=== PATIENT | male | born 1960 | race Two or more races ===

== ENCOUNTER 2017-11-16 05:50 | Day surgery (SDC) | payer OTHER ==
[2017-11-16] VITALS (11 sets, daily range): BP systolic 104–141; BP diastolic 60–87
[~2017-11-16] VITALS: Ht 182.9 cm; Wt 108.9 kg
[~2017-11-16 05:50] MED LIST: MELOXICAM15 MG PO; MIRTAZAPINE15 M3 ORAL; NORCO 10-325 T1 EACH ORAL
[2017-11-16] MEDS ORDERED: oxyCONTIN 20mg tab ORAL ONE (06:00)
[2017-11-16] MEDS ORDERED: celeBREX 200mg Cap **SURGERY PATIENTS ONLY PO ONE (06:00)
--- NOTE | 2017-11-16 06:41 | Anethesia Preoperative Eval ---
Anesthesia Pre-op PMH/ROS General Date of Evaluation: Nov 16, 2017 Anesthesiologist: Rohit ASA Score: ASA 2 Mallampati Score Class I : Soft palate, uvula, fauces, pillars visible Class II: Soft palate, uvula, fauces visible Class III: Soft palate, base of uvula visible Class IV: Only hard plate visible Mallampati Classification: Class II Surgeon: Torsten Diagnosis: Right shoulder impingement Surgical Procedure: Right shoulder arthroscopy and subacromial decompression Anesthesia History: none Family History: no anesthesia problems Allergies: Coded Allergies: PENICILLINS (Verified Allergy, Severe, 11/15/17) SKIN RASH,NAUSEA AND DIZZINESS, BODY SHAKES Medications: see eMAR Past Medical History Cardiovascular: Denies: HTN, CAD, MA, valve dz, arrhythmia, other Pulmonary: Reports: asthma, Denies: COPD, TERRELL, other Gastrointestinal/Genitourinary: Denies: GERD, CRI, ESRD, other Neurologic/Psychiatric: Reports: other - migraines, Denies: dementia, CVA, depression/anxiety, TIA Endocrine: Denies: DM, hypothyroidism, steroids, other HEENT: Denies: cataract (L), cataract (R), glaucoma, [place] (L), [place] (R), other Hematology/Immune: Reports: anemia - chronic, Denies: DVT, bleeding disorder, other Musculoskeletal/Integumentary: Denies: OA, RA, DJD, DDD, edema, other Other: obesity PSxH Narrative: Right leg sx, right arm sx Anesthesia Pre-op Phys. Exam Physician Exam see chart Constitutional: NAD Cardiovascular: RRR Respiratory: CTA Airway Exam Mallampati Score: Class II MO: limited Neck: short, obese TMD: <3FB ROM: full Teeth: intact Anesthesia Pre-op A/P Labs see chart Studies Pre-op Studies: EKG - sr Risk Assessment & Plan Assessment: ASA II Plan: GA-ETT Status Change Before Surgery: No Pre-Antibiotics Drug: Clindamycin 900mg Given Within 1 Hr of Incision: Yes Time Given: 08:00 LOUIS GALLEGOS M.D. Nov 16, 2017 06:41
[2017-11-16] MEDS ORDERED: LR 1000ml 1,000 ML IVLG SCH (07:04)
[2017-11-16] MEDS ORDERED: Bupivacaine 0.25% Inj 30ml INJ ONE (07:10)
[2017-11-16] MEDS ORDERED: Ropivacaine 5mg/ml Vial 30ml INJ ONE (07:10)
[2017-11-16] MEDS ORDERED: EPINEPHrine 1mg/1ml Amp ONE (07:10)
[2017-11-16] MEDS ORDERED: DiphenhydrAMINE 50mg/ml Inj IVP PRN (07:15)
[2017-11-16] MEDS ORDERED: Hydromorphone 0.5mg/0.5ml inj IVP PRN (07:15)
[2017-11-16] MEDS ORDERED: fentaNYL 100 mcg/2 mL IV PRN (07:15)
[2017-11-16] MEDS ORDERED: celeBREX 200mg Cap **SURGERY PATIENTS ONLY ORAL ONE (07:16)
--- NOTE | 2017-11-16 07:39 | Pre-Procedure Note/Attestation ---
Pre-Procedure Note/Attestation Complete Prior to Procedure Planned Procedure: left Procedure Narrative: shoulder arthroscopy, sad, possible rc repair Indications for Procedure Pre-Operative Diagnosis: left shoulder internal inpingement Attestation I attest that I discussed the nature of the procedure; its benefits; risks and complications; and alternatives (and the risks and benefits of such alternatives ), prior to the procedure, with the patient (or the patient's legal retail field representative). I attest that, if there was a reasonable possibility of needing a blood transfusion, the patient (or the patient's legal retail field representative) was given the [facility] standardized written summary, pursuant to the [place] Blood Safety Act ([place] Health and Safety Code # 1645, as amended). I attest that I re-evaluated the patient just prior to the surgery and that there has been no change in the patient's H&P, except as documented below: JUDY NEFF Nov 16, 2017 07:39
--- NOTE | 2017-11-16 07:40 | Operative Note - PDOC ---
Operative Note Operative Note Pre-op Diagnosis: left shoulder internal inpingement Procedure: left shoulder arthroscopy, sad, rct debridement Post-op Diagnosis: same as pre-op plus Operative Findings: consistent w/pre-op dx studies Anesthesia: MAC Specimen: none Complications: none Condition: stable Estimated Blood Loss: none Implant(s) used?: No JUDY NEFF Nov 16, 2017 07:40
[2017-11-16] MEDS ORDERED: Norco 5mg/325mg tab ORAL PRN (07:45)
[2017-11-16] MEDS ORDERED: D5 1/2NS 1,000 ML IV SCH (07:45)
[2017-11-16] MEDS ORDERED: HYDROmorphone 1mg/ml Carpuject SUBQ PRN (07:45)
[2017-11-16] MEDS ORDERED: Tylenol #3 tab (300mg/30mg) ORAL PRN (07:45)
[2017-11-16] MEDS ORDERED: Dexamethasone 4mg/ml vial ONE (08:00)
[2017-11-16] MEDS ORDERED: Lidocaine 1% MPF 10mg/ml 5ml ONE (08:00)
[2017-11-16] MEDS ORDERED: Propofol 200mg/20ml IV ONE (08:00)
[2017-11-16] MEDS ORDERED: fentaNYL 100 mcg/2 mL IV ONE (08:00)
[2017-11-16] MEDS ORDERED: LR 1000ml ONE (08:00)
[2017-11-16] MEDS ORDERED: Midazolam 2mg/2ml Inj ONE (08:00)
[2017-11-16] MEDS ORDERED: Zemuron 50mg/5ml Inj IV ONE (08:00)
[2017-11-16] MEDS ORDERED: Clindamycin 6 ML ONE (08:08)
--- NOTE | 2017-11-16 08:22 | 48 Hour Post Anesthesia Eval ---
Post Anesthesia Evaluation Procedure: Left shoulder arthroscopy, subacromial decompression Date of Evaluation: Nov 16, 2017 Time of Evaluation: 10:30 Blood Pressure Systolic: 119 0: 77 Pulse Rate: 78 Respiratory Rate: 20 Temperature (Fahrenheit): 98.2 O2 Sat by Pulse Oximetry: 96 Airway: patent Nausea: No Vomiting: No Pain Intensity: 0 Hydration Status: adequate Cardiopulmonary Status: at baseline Mental Status/LOC: patient returned to baseline Post-Anesthesia Complications: 0 Follow-up care needed: ready to discharge LOUIS GALLEGOS M.D. Nov 16, 2017 08:22
--- NOTE | 2017-11-16 08:22 | Immediate Post-Op Evaluation ---
Immediate Post-Op Evalulation Immediate Post-Op Evalulation Procedure: Left shoulder arthroscopy, subacromial decompression Date of Evaluation: Nov 16, 2017 Time of Evaluation: 09:25 IV Fluids: 900 Blood Products: 0 Estimated Blood Loss: 5 Urinary Output: 0 Blood Pressure Systolic: 104 Blood Pressure Diastolic: 60 Pulse Rate: 87 Respiratory Rate: 16 O2 Sat by Pulse Oximetry: 97 Temperature (Fahrenheit): 97.2 Pain Score (1-10): 0 Nausea: No Vomiting: No Complications 0 Patient Status: awake, reacts, patent, none Hydration Status: adequate Drug: Clindamycin 900mg Given Within 1 Hr of Incision: Yes Time Given: 08:00 LOUIS GALLEGOS M.D. Nov 16, 2017 08:22
--- NOTE | 2017-11-16 10:30 | Operative Note - Dictated ---
DATE OF OPERATION: 11/16/2017 PREOPERATIVE DIAGNOSES: 1. Left shoulder partial rotator cuff tear. 2. Left shoulder impingement syndrome. POSTOPERATIVE DIAGNOSES: 1. Left shoulder partial articular-sided rotator cuff tear. 2. Left shoulder anterior labral tear. 3. Left shoulder impingement syndrome with hypertrophic bursal tissue. 4. Grade 1 superior labral tear. 5. Partial bursal-sided rotator cuff tear. PROCEDURES: 1. Left shoulder diagnostic arthroscopy, extensive intra-articular debridement of the labrum as well as rotator cuff. 2. Subacromial decompression bursectomy. 3. AC joint coplaning. SURGEON: Qamar Sarmiento M.D. ANESTHESIA: Interscalene with general. INDICATION FOR PROCEDURE: The patient is a 57-year-old gentleman with continued pain in the left shoulder. He failed conservative treatment. He had MRI, which showed a partial rotator cuff tear along with impingement with acromial spur. The patient failed conservative treatment and therefore elected to undergo left shoulder diagnostic arthroscopy, possible repair and debridement of rotator cuff tear with concurrent subacromial decompression bursectomy. Risks, limitations, expectations, and complications of procedure were discussed in detail. All questions were addressed. DESCRIPTION OF PROCEDURE: An informed consent was obtained. The patient was brought to the operating room where the patient was placed under interscalene general anesthesia. The patient then carefully placed in beach-chair position. Left shoulder was prepped and draped in sterile manner. Time-out was performed. Portal sites were injected with 0.25% Marcaine and epi. Inferolateral stab incision was then made. Trocar was placed in glenohumeral joint. There was some fraying of the anterior labrum as well as superior labrum. The biceps tendon appeared to be intact. The undersurface of the acromion had an area of partial tearing of the rotator cuff. Portal was placed into the interval and the shaver was then placed. Debridement of the labrum was performed along the anterior labrum and superior labrum. The undersurface of the rotator cuff was debrided. Once that was done, a probe was placed and the labrum was probed, noted to be intact. There was no peeling off of the superior labrum. The articular side of rotator cuff appeared to be of partial thickness. At this point, the camera was placed in the subacromial space, complete bursectomy. There was hypertrophic bursal tissue which was completely removed. The undersurface of acromion was identified. Acromioplasty was started from lateral to medial and completed from posterior to anterior. Once that was done, the undersurface of the AC joint was identified and coplaning was performed. At this point, the bursal side of the rotator cuff was visualized. There was a delaminated tear of the supraspinatus. This was debrided, did not represent a full-thickness tear and therefore, formal repair was not required. The instruments were removed. Portal sites were closed with 3-0 Monocryl sutures. Steri-Strips and sterile dressing were applied. The patient was awoken and taken to recovery room with stable vital signs. ESTIMATED BLOOD LOSS: Minimal. COMPLICATIONS: None. SPECIMENS: None. IMPLANTS: None. Qamar Sarmiento M.D. DR: Jozef JOB#: [id number] CC: [id number]
== END 2017-11-16 11:15 | disposition home or self-care (01) ==
LOC: SUR 05:50
DX: M75.111 Incomplete rotator cuff tear or rupture of right shoulder, not specified as traumatic (principal); M75.41 Impingement syndrome of right shoulder; S83.91XA Sprain of unspecified site of right knee, initial encounter; X58.XXXA Exposure to other specified factors, initial encounter; Y93.9 Activity, unspecified; Y92.9 Unspecified place or not applicable; Z88.0 Allergy status to penicillin
CPT/HCPCS: 29823; 29826; 29827; J0171; J1100; J1170; J2250; J2405; J2704; J2795; J3010; J3490; J7120; S0077; 94003; 94150